=== PATIENT | female | born 1955 | race Caucasian/White ===

== ENCOUNTER → 2018-11-16 | Outpatient (CLI) | payer OTHER ==
[~2018-11-16] VITALS: Ht 162.6 cm; Wt 60.3 kg
[~2018-11-16] MED LIST: CENTRUM SILVER1 EAC4 PO; CVS LUTEIN 401 EACH PO; FLEXERIL PO; HAIR, SKIN & N1 EAC2 PO; NORCO 10-325 T1 EACH PO; OCUVITE TABLET1 EAC1 PO; PRILOSEC 20 MG20 MG PO; TUMS PO; VITAMIN D-32000 UNIT PO; ZOCOR20 MG PO
--- NOTE | 2018-11-16 11:03 | P ---
[facility] [place] [address] PROCEDURE REPORT Name: KIRSTEN GOMEZ Room #: REG [facility]#: [id number] Admission: 11/16/18 Attend Phys: Louis Bucio MD Discharge: Date of : 51 Report #: [id number] THIS REPORT FOR: //name// CC: Luois Bucio Physician staff PATTI Quinn MD DATE OF SERVICE: 11/16/2018 BRIEF HISTORY: The patient is a 63-year-old woman with history of advanced adenoma, for high risk screening colonoscopy. PREOPERATIVE DIAGNOSIS: High risk screening colonoscopy. POSTOPERATIVE DIAGNOSES: 1. Diminutive polyp, hepatic flexure. 2. Diverticulosis coli, right and left colon. MEDICATION: Deep sedation with propofol per Anesthesia. SPECIMEN: Polyp from hepatic flexure. ESTIMATED BLOOD LOSS: 3 mL. PROCEDURE: Colonoscopy to cecum and terminal ileum with biopsy. FINDINGS: Prior to propofol sedation, procedure of colonoscopy discussed with the patient as well as potential risks and its complications. She indicates she understands and desires to proceed. DESCRIPTION OF PROCEDURE: The patient placed in left lateral decubitus position, digital examination was completed, which revealed no abnormalities. Subsequently, the Olympus video colonoscope was introduced in the rectum, advanced under direct vision to the cecum. Done with minimal difficulty. The cecum was identified by the ileocecal valve and the appendiceal orifice. I was able to visualize the distal segment of terminal ileum, which was inspected and noted to be unremarkable. At that point, the scope was slowly withdrawn and careful circumferential views obtained including retroflexing the scope in the ascending colon. Upon slow withdrawal of the scope, the prep was good. The mucosa was within normal limits, normal vascular pattern, normal light reflex. As we withdrew the scope, there were noted to be multiple scattered medium sized diverticula in the proximal colon. There was no endoscopic evidence of diverticulitis. At the level of hepatic flexure, a diminutive polyp was seen and removed by biopsy. The scope was further withdrawn and no additional abnormalities were noted until the left colon was reached, at which point she [facility] [address] [place] [address] PROCEDURE REPORT Name: PATRICIAKIRSTEN L Room #: REG [facility].#: [id number] Admission: 11/16/18 Attend Phys: Louis Bucio MD Discharge: Date of : 51 Report #: [id number] was noted to have moderately severe diverticular disease without endoscopic evidence of diverticulitis. Scope was withdrawn in the rectum and upon retroflexion no abnormalities were seen. In addition, there was a vague, very mild pattern of melanosis coli and mild colonic distention suggesting the possibility of chronic constipation. Scope was withdrawn. The patient tolerated the procedure well. CONDITION OF THE PATIENT UPON DISCHARGE: Following the procedure the patient was drowsy. She will be discharged home when fully ambulatory. INSTRUCTIONS TO THE PATIENT AND FAMILY AT THE TIME OF DISCHARGE: One diminutive polyp identified and removed today. Due to the findings of advanced adenoma in the past, suggest return in 5 years. 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 Suggest high fiber diet or fiber supplementation. Also, MiraLax to be indicated if needed. Last colonoscopy was about 5 years ago. Withdrawal time from the cecum was 13 minutes and 49 seconds. <ELECTRONICALLY SIGNED> By: Louis Bucio MD 11/16/18 1103 [id number] 1101 Louis Bucio MD /nt
--- NOTE | 2018-11-16 11:03 | P ---
[facility] [place] [address] PROCEDURE REPORT Name: KIRSTEN GOMEZ Room #: REG [facility]#: [id number] Admission: 11/16/18 Attend Phys: Louis Bucio MD Discharge: Date of : 51 Report #: [id number] THIS REPORT FOR: //name// CC: Louis Bucio Physician staff PATTI SMITH BRIEF HISTORY: The patient is a 63-year-old woman with history of reflux disease with intermittent episodes of chest pain, which she attributes to esophageal spasm. She also has occasional solid food dysphagia. PREOPERATIVE DIAGNOSES: Reflux with bouts of chest pain and dysphagia. POSTOPERATIVE DIAGNOSES: 1. Modest diffuse erythematous gastritis. 2. Small duodenal diverticulum, second portion of duodenum. 3. Dysphagia. MEDICATIONS: Deep sedation with propofol per Anesthesia. SPECIMEN: Biopsies of gastritis. ESTIMATED BLOOD LOSS: 3 mL. PROCEDURE: EGD with biopsy and Roman dilation. FINDINGS: Prior to propofol sedation, the procedure of upper endoscopy and biopsy discussed with the patient as well as potential risks and its complications. She indicates she understands and desires to proceed. DESCRIPTION OF PROCEDURE: With the patient in left lateral decubitus position, the Olympus video endoscope was inserted in the cervical esophagus under direct vision without difficulty. Examination of this organ throughout its length was found to be normal, normal esophageal mucosa down the squamocolumnar junction. At that point, squamocolumnar junction was inspected and unremarkable. A hiatus hernia was not seen. There was no evidence of Wood mucosa. A stricture or mass was not seen. Scope was advanced in the stomach, was examined on end view as well as retroflexed views. There was a modest erythematous antral gastritis. No ulcers or erosions were seen. Upon retroflexion, no mass lesions were seen. Biopsies obtained of the gastritis. The pylorus was normal. Duodenal bulb was normal. Scope was advanced in the second portion of duodenum and a small duodenal diverticulum was seen. The duodenal papilla was on the edge of the diverticulum. At that point, the scope was slowly withdrawn and careful circumferential views confirmed the above findings. The patient tolerated the procedure well. [facility] [address] [place] [address] PROCEDURE REPORT Name: KIRSTEN GOMEZ Room #: REG [facility]#: [id number] Admission: 11/16/18 Attend Phys: Louis Bucio MD Discharge: Date of : 51 Report #: [id number] Following procedure, she was dilated with passage of a 50-Tajik Roman dilator. There was no resistance. CONDITION OF THE PATIENT UPON DISCHARGE: Following procedure, the patient was drowsy and will be discharged home when fully ambulatory. INSTRUCTIONS TO THE PATIENT AND FAMILY AT THE TIME OF DISCHARGE: The patient has been taking omeprazole for reflux. She has had some bouts of chest pain. I do not see evidence of esophagitis. She is to continue her omeprazole. Discussed antireflux measures. If possible, she can take omeprazole on an as needed basis. If her chest pain worsens, consider increasing her PPI dosage. Proceed with colonoscopy at this time. <ELECTRONICALLY SIGNED> By: Louis Bucio MD 11/16/18 1103 0908 1052 Louis Bucio MD /nt
--- NOTE | 2018-11-19 13:23 | PATH ---
[facility] [address] [place] [address] PATHOLOGY RPT PROCEDURE Name: PATRICIAIWONA Dm Room #: REG [facility].#: [id number] Admission: 11/16/18 Date of : 51 Discharge: Report #: [id number] Path Case #: [id number] [facility] Accession Number: [id number] . 01 Material submitted: . PART A: BIOPSY GASTRITIS PART B: BIOPSY POLYP AT HEPATIC FLEXURE . 01 Clinical history: . Pre-OP DX: HX: polyps Post-OP DX: Gastritis, diverticulosis, colon polyp, dysphagia . 02 Diagnosis: A. Gastric mucosa, gastritis, rule out Helicobacter pylori, endoscopic biopsy: - Mild chronic inflammation. - Negative for intestinal metaplasia or atrophy. - Negative for Helicobacter pylori (properly controlled immunohistochemical stain performed). . B. Polyp, at hepatic flexure, endoscopic biopsy: - Tubular adenoma admixed with hyperplastic changes. - Negative for high grade dysplasia. . (IUV:at;11/17/2018) QTA/11/17/2018 . 02 Electronically signed: . Celeste Fonseca MD, Pathologist NPI- [id number] . 01 Gross description: . A. Received in formalin labeled "Ast, Iwona, BX gastritis, rule out H. pylori," are 5 segments of culp soft tissue measuring 1.0 x 0.8 x 0.2 cm in aggregate dimensions and ranging from 0.3 to 0.7 cm in maximum dimension. The specimen is submitted entirely in cassette A1. . B. Received in formalin labeled "Ast, Iwona, BX polyp at hepatic flexure," are 2 segments of culp soft tissue measuring 0.7 x 0.3 x 0.2 cm in aggregate dimensions and ranging from 0.3 to 0.4 cm in maximum dimension. The specimen is submitted entirely in cassette B1. (TSD; 11/16/2018) TOB/TOB . 02 Pathologist provided ICD-10: K29.50, D12.3 . 02 [place] [address] PATHOLOGY RPT PROCEDURE Name: IWONA GOMEZ Room #: REG [facility]#: [id number] Admission: 11/16/18 Date of : 51 Discharge: Report #: [id number] Path Case #: [id number] [facility] . [id number], [id number] Specimen Comment: A courtesy copy of this report has been sent to Specimen Comment: [phone], . Specimen Comment: Report sent to and Specimen Comment: A duplicate report has been generated due to demographic updates. Performed at: [address], [place] [id number] MD Jordan Wise MD Phone: [phone] Performed at: [address] [id number] MD Celeste Fonseca MD Phone: [phone]
== END | disposition home or self-care (01) ==
LOC: GI 07:32
DX: Z12.11 Encounter for screening for malignant neoplasm of colon (principal); Z86.010 Personal history of colon polyps; D12.3 Benign neoplasm of transverse colon; K29.50 Unspecified chronic gastritis without bleeding; K57.30 Diverticulosis of large intestine without perforation or abscess without bleeding; K57.10 Diverticulosis of small intestine without perforation or abscess without bleeding; Z87.19 Personal history of other diseases of the digestive system; Z85.820 Personal history of malignant melanoma of skin; Z98.890 Other specified postprocedural states; Z79.899 Other long term (current) drug therapy; Z79.891 Long term (current) use of opiate analgesic
CPT/HCPCS: 62110; 62900